=== PATIENT | female | born 1970 | race Caucasian/White ===

== ENCOUNTER 2018-02-03 00:35 | Emergency (ER) | payer OTHER ==
[2018-02-03] MEDS: predniSONE 20 MG TAB PO (04:50)
== END 2018-02-03 05:04 | disposition home or self-care (01) ==
LOC: FTE 00:35
DX: M79.604 Pain in right leg (principal)
CPT/HCPCS: 99284; J7512

== ENCOUNTER 2018-02-16 11:14 | Emergency (ER) | payer OTHER ==
[2018-02-16] MEDS: ONDANSETRON (ODT) 4 MG TAB ODT (14:00)
[2018-02-16 14:34] LABS: ADD UMIC NO; UR ASCORBIC ACID NEGATIVE (NEGATIVE); UR BILIRUBIN (Dip) NEGATIVE (NEGATIVE); UR BLOOD (Dip) NEGATIVE (NEGATIVE); UR CLARITY CLEAR (CLEAR); UR COLOR YELLOW (YELLOW); UR GLUCOSE (Dip) NEGATIVE (NEGATIVE); UR KETONES (Dip) NEGATIVE (NEGATIVE); UR LEUKOCYTE ESTERASE (Dip) NEGATIVE Leu/ul (NEGATIVE); UR NITRITE (Dip) NEGATIVE (NEGATIVE); UR SPECIFIC GRAVITY (Dip) 1.009 (1.003-1.030); UR TOTAL PROTEIN (Dip) NEGATIVE (NEGATIVE); UR UROBILINOGEN (Dip) NEGATIVE (NEGATIVE)
== END 2018-02-16 15:15 | disposition home or self-care (01) ==
LOC: FTE 11:14
DX: N39.0 Urinary tract infection, site not specified (principal); Z85.51 Personal history of malignant neoplasm of bladder
CPT/HCPCS: 81003; 81025; 99284

== ENCOUNTER 2018-08-27 14:44 | Emergency (ER) | payer OTHER ==
[2018-08-27 15:33] LABS: ADD MAN DIFF? NO
[2018-08-27] MEDS: ONDANSETRON 4 MG INJ IV (15:36)
[2018-08-27 15:40] LABS: WHITE BLOOD COUNT 7.5 10^3/ul (4.8-10.8)
[2018-08-27 15:40] LABS: BASOPHILS % 0.3 % (0.0-2.0); HEMATOCRIT 38.9 % (37.0-47.0); HEMOGLOBIN 12.5 g/dl (12.0-16.0); LYMPHOCYTES # 0.9 10^3/ul (0.8-2.9); LYMPHOCYTES % 12.1 % (15.0-51.0); MEAN CORPUSCULAR HEMOGLOBIN 29.5 pg (29.0-33.0); MEAN CORPUSCULAR HGB CONC 32.1 g/dl (32.0-37.0); MEAN CORPUSCULAR VOLUME 91.7 fl (82.0-101.0); MEAN PLATELET VOLUME 9.1 fl (7.4-10.4); MONOCYTE # 0.4 10^3/ul (0.3-0.9); MONOCYTES % 5.6 % (0.0-11.0); NEUTROPHIL # 6.1 10^3/ul (1.6-7.5); NEUTROPHILS % 81.2 % (39.0-77.0); PLATELET COUNT 282 10^3/UL (140-415); RED BLOOD COUNT 4.24 10^6/ul (4.20-5.40); RED CELL DISTRIBUTION WIDTH 12.6 % (11.5-14.5)
[2018-08-27 15:58] LABS: ALANINE AMINOTRANSFERASE 38 IU/L (13-69); ALBUMIN 3.8 g/dl (3.3-4.9); ALBUMIN/GLOBULIN RATIO 1.05; ALKALINE PHOSPHATASE 70 IU/L (42-121); ANION GAP 14 (8-16); ASPARTATE AMINO TRANSFERASE 27 IU/L (15-46); BILIRUBIN,INDIRECT 0.5 mg/dl (0-1.1); BILIRUBIN,TOTAL 0.5 mg/dl (0.2-1.3); BLOOD UREA NITROGEN 19 mg/dl (7-20); CALCIUM 9.7 mg/dl (8.4-10.2); CARBON DIOXIDE 28 mmol/L (21-31); CHLORIDE 101 mmol/L (97-110); CREATININE 0.62 mg/dl (0.44-1.00); GLUCOSE 114 mg/dl (70-220); LIPASE 47 U/L (23-300); SODIUM 139 mmol/L (135-144); TOTAL PROTEIN 7.4 g/dl (6.1-8.1)
[2018-08-27 16:34] LABS: URINE BLOOD (Dip) POC Negative (NEGATIVE); URINE GLUCOSE (Dip) POC Negative (NEGATIVE); URINE KETONES (Dip) POC 1+ (NEGATIVE); URINE LEUKOCYTE EST (Dip) POC Negative (NEGATIVE); URINE NITRITE (Dip) POC Negative (NEGATIVE); URINE TOTAL PROTEIN POC 1+ (NEGATIVE)
[2018-08-27] MEDS: METOCLOPRAMIDE 10 MG INJ IV (17:07)
[2018-08-27] MEDS: SOD CHLORIDE 0.9% 500 ML IV (17:08)
== END 2018-08-27 18:15 | disposition home or self-care (01) ==
LOC: E/R 14:44
DX: R11.10 Vomiting, unspecified (principal)
CPT/HCPCS: 36415; 80053; 81003; 81025; 83690; 85025; 96361; 96374; 96375; 99284-25

== ENCOUNTER 2019-07-17 13:03 | Inpatient (IN) | payer OTHER ==
[2019-07-17] MEDS: SOD CHLORIDE 0.9% 1,000 ML IV (15:05)
[2019-07-17] MEDS: ONDANSETRON 4 MG INJ IV (15:25)
[2019-07-18] MEDS: SOD CHLORIDE 0.9% 1,000 ML IV ×2 (00:34→12:46)
[2019-07-18] MEDS: LORAZEPAM 2 MG INJ IV (00:39)
[2019-07-18] MEDS: NACL 0.9% 3 ML SYG IV (00:40)
[2019-07-18 05:07] LABS: ADD MAN DIFF? NO
[2019-07-18 05:10] LABS: BASOPHILS % 0.4 % (0.0-2.0); EOSINOPHILS % 0.4 % (0.0-7.0); HEMATOCRIT 37.4 % (37.0-47.0); HEMOGLOBIN 11.7 g/dl (12.0-16.0); LYMPHOCYTES # 1.2 10^3/ul (0.8-2.9); LYMPHOCYTES % 23.1 % (15.0-51.0); MEAN CORPUSCULAR HGB CONC 31.3 g/dl (32.0-37.0); MEAN CORPUSCULAR VOLUME 92.6 fl (82.0-101.0); MEAN PLATELET VOLUME 9.3 fl (7.4-10.4); MONOCYTE # 0.5 10^3/ul (0.3-0.9); MONOCYTES % 9.1 % (0.0-11.0); NEUTROPHIL # 3.3 10^3/ul (1.6-7.5); NEUTROPHILS % 66.6 % (39.0-77.0); PLATELET COUNT 212 10^3/UL (140-415); RED BLOOD COUNT 4.04 10^6/ul (4.20-5.40); RED CELL DISTRIBUTION WIDTH 12.9 % (11.5-14.5)
[2019-07-18 05:33] LABS: ALANINE AMINOTRANSFERASE 25 IU/L (13-69); ALBUMIN 3.4 g/dl (3.3-4.9); ALBUMIN/GLOBULIN RATIO 1.13; ALKALINE PHOSPHATASE 63 IU/L (42-121); ANION GAP 5 (5-13); ASPARTATE AMINO TRANSFERASE 20 IU/L (15-46); BILIRUBIN,INDIRECT 0.8 mg/dl (0-1.1); BILIRUBIN,TOTAL 0.8 mg/dl (0.2-1.3); BLOOD UREA NITROGEN 12 mg/dl (7-20); CALCIUM 8.6 mg/dl (8.4-10.2); CARBON DIOXIDE 30 mmol/L (21-31); CHLORIDE 105 mmol/L (97-110); CREATININE 0.62 mg/dl (0.44-1.00); Estimated GFR > 60 mL/min (>60); GLUCOSE 106 mg/dl (70-220); PHOSPHORUS 2.9 mg/dl (2.5-4.9); POTASSIUM 3.7 mmol/L (3.5-5.1); SODIUM 140 mmol/L (135-144); TOTAL PROTEIN 6.4 g/dl (6.1-8.1)
[2019-07-18 05:48] LABS: HEMOGLOBIN A1C 4.9 % (0-5.9)
[2019-07-18 06:00] LABS: THYROID STIMULATING HORMONE 0.709 MIU/L (0.465-4.680)
[2019-07-18] MEDS: PANTOPRAZOLE 40 MG INJ IV (06:36)
[2019-07-18] MEDS: ONDANSETRON 4 MG INJ IV (08:36)
[2019-07-18] MEDS: IOHEXOL 300MG/ML 150 ML BTL (09:02)
[2019-07-19] MEDS: ACETAMINOPHEN 325 MG TAB PO (01:55)
[2019-07-19] MEDS: PANTOPRAZOLE 40 MG INJ IV (05:22)
== END 2019-07-19 11:30 | disposition home or self-care (01) | DRG 390 ==
LOC: MS1 17:28 → E/R 13:03 → MS1 14:07
DX: K56.609 Unspecified intestinal obstruction, unspecified as to partial versus complete obstruction (principal); I10 Essential (primary) hypertension; K21.9 Gastro-esophageal reflux disease without esophagitis; R11.2 Nausea with vomiting, unspecified; Z85.41 Personal history of malignant neoplasm of cervix uteri; Z90.710 Acquired absence of both cervix and uterus
CPT/HCPCS: 74250; 80053; 83036; 83735; 84100; 84443; 85025; 99285-25